=== PATIENT | female | born 1995 | race Hispanic/Latino ===

== ENCOUNTER 2019-04-28 20:51 | Emergency (ER) | payer OTHER ==
[~2019-04-28] VITALS: Ht 157.5 cm; Wt 57.2 kg
[2019-04-28] MEDS ORDERED: MORPHINE SULFATE 2 MG/ML SYR 1ML IV STA (21:23)
[2019-04-28] MEDS ORDERED: ONDANSETRON HCL INJ 2MG/ML 2ML 2 MG/ML VIAL IV STA (21:23)
[2019-04-28] MEDS ORDERED: SODIUM CHLORIDE 0.9% 1000ML 1,000 ML IV ONE (21:30)
[2019-04-28] MEDS ORDERED: ONDANSETRON HCL INJ 2MG/ML 2ML 2 MG/ML VIAL ONE (21:40)
[2019-04-28] MEDS ORDERED: SODIUM CHLORIDE 0.9% 1000ML 1,000 ML ONE (21:41)
[2019-04-28] MEDS ORDERED: MORPHINE SULFATE INJ 4 MG/ML INJ 1ML ONE (21:41)
[2019-04-28] MEDS ORDERED: SODIUM CHLORIDE 0.9% 50ML 50 ML ONE (22:52)
[2019-04-28] MEDS ORDERED: IOPAMIDOL 370 MG/ML 200 ML INFUS..BTL INJ ONE (22:52)
--- NOTE | 2019-04-28 23:33 | Diagnostic Imaging Report ---
EXAM: CT Abdomen and Pelvis WITH contrast INDICATION: ^[id number] ^[id number] COMPARISON: None. TECHNIQUE: Abdomen and pelvis were scanned utilizing a multidetector helical scanner from the lung base to the pubic symphysis after administration of IV contrast. Coronal and sagittal reformations were obtained. Routine protocol was performed. Scan was performed when during portal venous phase. IV CONTRAST: 100 mL of Isovue-370 ORAL CONTRAST: None RADIATION DOSE: Total DLP: 349 mGy*cm Estimated effective dose: (DLP x 0.015 x size factor) mSv COMPLICATIONS: None FINDINGS: LINES and TUBES: None. LOWER THORAX: Unremarkable HEPATOBILIARY: No focal hepatic lesions. No biliary ductal dilation. GALLBLADDER: No radio-opaque stones or sludge. No wall thickening. SPLEEN: No splenomegaly. PANCREAS: No focal masses or ductal dilatation. ADRENALS: No adrenal nodules KIDNEYS/URETERS: Kidneys enhance symmetrically. No hydronephrosis. No cystic or solid mass lesions. No stones. GI TRACT: No abnormal distention, wall thickening, or evidence of bowel obstruction. Appendix is difficult to visualize but it appeared normal on coronal view image 30. PELVIC ORGANS/BLADDER: 2.4 cm peripherally enhancing cystic lesion in the left adnexa on series 2, image 70 and adjacent 1.9 cm low-attenuation cystic lesion in the deep pelvis surrounding by a moderate amount of hyperdense fluid suggestive of blood. The uterus is normal in size. The urinary bladder is moderately distended. LYMPH NODES: No lymphadenopathy. VESSELS: Unremarkable. PERITONEUM / RETROPERITONEUM: No free air. Small to moderate amount of high attenuation fluid in the perihepatic region and pelvis suggestive of blood. BONES: Unremarkable. SOFT TISSUES: Unremarkable. IMPRESSION: Small to moderate amount of plaque in the pelvis and perihepatic regions with 2 cystic lesions in the left adnexa may reflect ruptured hemorrhagic cyst or endometrioma. Differential diagnosis includes ruptured ectopic if positive UPT. Recommend HE[employer]NALYST consultation and pelvic ultrasound. Appendix is difficult to visualize but appeared normal on coronal view. Signed by: Dr. Nancy Bueno M.D. on 04/28/2019 11:30 PM
[2019-04-29 00:16] VITALS: BP 123/73
== END 2019-04-29 00:18 | disposition home or self-care (01) ==
LOC: FSED 20:51
DX: R10.30 Lower abdominal pain, unspecified (principal); N83.202 Unspecified ovarian cyst, left side
CPT/HCPCS: 74177; 80053; 80076; 81003; 81025; 85025; 99284; J2270; J2405; J7030; Q9967